=== PATIENT | female | born 1990 | race Two or more races ===

== ENCOUNTER 2021-04-13 13:30 | Emergency (ER) | payer SELFPAY ==
[2021-04-13 13:48] VITALS: BP 112/71; PULSE 75; RESP 18; TEMP 36.9; O2SAT 100; BMI 31.1
--- NOTE | 2021-04-13 14:32 | ED_ITS ---
HPI - Recheck/Abnormal Lab/Rx General Chief Complaint: Wound/Laceration Stated Complaint: VAGINAL ISSUE Time Seen by Provider: 04/13/21 14:29 Related Data Allergies Allergy/AdvReac Type Severity Reaction Status Date / Time No Known Allergies Allergy Verified 04/13/21 13:53 [facility] Past Medical History Medical History (Updated 04/13/21 @ 13:52 by Ibeth Thomas) No known health problems Social History Social History Patient : No Physical Exam Vital Signs: Vital Signs: Last Vital Signs Temp 98.5 F 04/13/21 13:48 Pulse 75 04/13/21 13:48 Resp 18 04/13/21 13:48 BP 112/71 04/13/21 13:48 Pulse Ox 100 04/13/21 13:48 Body Mass Index 31.1
--- NOTE | 2021-04-13 14:48 | PC.NURSE ---
multiple calls made to bring pt back, no answer
== END 2021-04-13 15:01 | disposition left against medical advice (07) ==
LOC: HO.ED 15:00
PROVIDERS: Emergency Provider Emergency Medicine
DX: R10.2 Pelvic and perineal pain (principal)
CPT/HCPCS: 99281; 99282

== ENCOUNTER 2021-08-21 10:11 | Outpatient (REF) | payer MEDICAID, SELFPAY ==
--- NOTE | 2021-08-21 10:20 | EMG_ITS ---
This is a 31-year-old woman who first developed pain and numbness in her hands during her 1st 9 years ago and now has pain and numbness in both hands. PHYSICAL EXAMINATION: On examination, she is alert and oriented with normal intellectual functions. Cranial nerves II through XII are normal. Muscle tone and strength normal in all 4 extremities. No Tinel or Phalen sign. IMPRESSION: Carpal tunnel syndrome. Nerve conduction EMG study: Mild to moderate carpal tunnel syndrome on the right, early carpal tunnel syndrome on the left. Normal EMG of the right C5-T1 innervated muscles. MD ARUN Montana/CHANELLE / [id number]
== END 2021-08-21 10:12 | disposition home or self-care (01) ==
LOC: HO.NEURO 10:11
PROVIDERS: Visit Provider Registered Nurse
DX: R20.2 Paresthesia of skin (principal)
CPT/HCPCS: 95885; 95913

== ENCOUNTER 2021-09-09 10:17 | Outpatient (REF) | payer MEDICAID, OTHER, SELFPAY ==
[2021-09-09 10:32] LABS: MANUAL DIFF FLAG NO
[2021-09-09 10:47] LABS: Basophils Percent Auto 0.4 % (0-2); Eosinophils Absolute Auto 0.2 X10*3/uL (0.0-0.4); Eosinophils Percent Auto 1.8 % (0-4); Hematocrit 42.4 % (37.0-47.0); Hemoglobin 13.8 g/dl (12.0-16.0); Imm Gran Abs Auto 0.01 X10*3/uL (0.00-0.03); Imm Gran Pct Auto 0.1 % (0.0-0.4); Lymphocytes Absolute Auto 3.1 X10*3/uL (1.2-4.9); Lymphocytes Percent Auto 36.4 % (20-40); Mean Corpuscular HGB Conc 32.5 g/dl (31.0-35.0); Mean Corpuscular Hemoglobin 30.3 pg (27.0-33.0); Mean Corpuscular Volume 93.2 fL (80.0-98.0); Mean Platelet Volume 10.5 fL (9.4-12.3); Monocytes Absolute Auto 0.5 X10*3/uL (0.1-1.2); Monocytes Percent Auto 6.3 % (2-11); Neutrophils Absolute Auto 4.7 x10*3/uL (2.0-8.3); Platelet Count 328 X10*3/uL (160-400); Red Blood Count 4.55 X10*6/uL (4.20-5.50); Red Cell Distribution Width 14.4 % (11.0-16.0); White Blood Count 8.5 X10*3/uL (4.8-10.8)
[2021-09-09 14:12] LABS: CT PCR NOT DETECTED (Not Detect.); NG PCR NOT DETECTED (Not Detect.)
== END 2021-09-09 10:18 | disposition home or self-care (01) ==
LOC: HO.LAB 10:17
PROVIDERS: Absent Provider Registered Nurse; PCP Registered Nurse; Visit Provider Internal Medicine
DX: N92.1 Excessive and frequent menstruation with irregular cycle (principal)
CPT/HCPCS: 84443; 85025; 87491; 87591

== ENCOUNTER 2021-10-07 11:16 | Outpatient (REF) | payer MEDICAID, OTHER, SELFPAY ==
--- NOTE | ~2021-10-07 | US_ITS ---
EXAMINATION: US PELVIS CLINICAL INFORMATION: Irregular menses COMPARISON: None TECHNIQUE: Ultrasound of the pelvis is performed using both transabdominal and transvaginal transducers along with Doppler. Transvaginal imaging is performed due to inadequate visualization transabdominally. FINDINGS: Uterus: The uterus is anteverted and measures 8.8 cm in length, 4.3 mL in AP and 5.3 cm in transverse dimension. The double wall endometrial thickness is 0.2 cm. There is an echogenic focus in the central endometrial canal measuring 0.3 x 0.3 x 0.2 cm. The uterus is smooth in contour and has normal myometrial echogenicity. No visible fibroid. Adnexa: Both ovaries are visualized. There is normal color flow to the adnexa. There is no ovarian torsion. There is no pelvic ascites or fluid collection. Right ovary measures 3.5 x 1.6 x 1.8 and volume 5.4 mL. There are multiple follicles visualized. Left ovary measures 3.7 x 2.3 x 2.1 cm and volume 9.3 mL. There are multiple follicles visualized. US/US pelvic and transvaginal IMPRESSION: Multiple small follicles seen in both ovaries. Echogenic focus in the endometrial canal question calcification. The uterus otherwise unremarkable. Minimal fluid within the cervical canal.
== END 2021-10-07 11:17 | disposition home or self-care (01) ==
LOC: HO.US 11:16
PROVIDERS: PCP Registered Nurse; Visit Provider Registered Nurse
DX: N92.1 Excessive and frequent menstruation with irregular cycle (principal)
CPT/HCPCS: 76830; 76856

== ENCOUNTER 2022-04-28 18:05 | Outpatient (REF) | payer MEDICAID, OTHER, SELFPAY ==
--- NOTE | ~2022-04-28 | MR_ITS ---
EXAMINATION: MRI OF THE BRAIN WITHOUT CONTRAST. CLINICAL INFORMATION: 32-year-old with persistent intense headaches, left-sided temporal region. COMPARISON: None. TECHNIQUE: Multiplanar multisequence MR imaging of the brain was done without IV contrast. FINDINGS: BRAIN VOLUME: Moderately prominent sulcal spaces overlying the parietal convexity and occipital lobes is noted bilaterally, the significance of which is uncertain. If clinically warranted, quantitative brain volumetrics may be of additional value for further assessment of this finding. STRUCTURAL: No malformations. BRAIN AND MENINGES: DWI sequence demonstrates no restricted diffusion to suggest acute or subacute cerebral ischemia. The brain is normal in morphology and signal intensity. Gradient refocused imaging demonstrates no abnormal magnetic susceptibility artifact to suggest hemorrhage, hemosiderin staining or abnormal mineral deposition. No extra-axial fluid collection, space-occupying process or mass effect. Segovia-white matter interface is preserved. VENTRICLES AND SUBARACHNOID SPACES: The ventricular system is within normal limits without hydrocephalus. Subarachnoid spaces overlying the parieto-occipital lobes seems disproportionately prominent, of uncertain significance. ORBITAL STRUCTURES: The visualized orbital structures are grossly unremarkable within the limitations of the study. VASCULAR: Signal voids are noted in the visualized major intracranial vessels. OSSEOUS STRUCTURES, SINUSES/MASTOIDS, EXTRACRANIAL SOFT TISSUES: Some mucosal thickening in the ethmoid complex is noted, with probable retention cysts in the maxillary sinuses bilaterally. Osseous marrow signal intensity appears grossly within normal limits. MR/MR head/brain wo con IMPRESSION: 1. No acute intracranial process. Specifically, no evidence for infarction, hemorrhage, extra-axial fluid collection, significant space-occupying process or mass effect. 2. Somewhat disproportionately prominent sulcal spaces overlying the parietal and occipital lobes bilaterally, significance uncertain. If clinically warranted, quantitative brain volumetrics can be done to further assess. There is no hydrocephalus. 3. Paranasal sinus findings as discussed above.
== END 2022-04-28 18:06 | disposition home or self-care (01) ==
LOC: HO.MRI 18:05
PROVIDERS: Visit Provider Registered Nurse
DX: R51.9 Headache, unspecified (principal)
CPT/HCPCS: 70551

== ENCOUNTER 2023-07-29 12:41 | Outpatient (REF) | payer MEDICAID, OTHER, SELFPAY | END 2023-07-29 12:42 | disposition home or self-care (01) | LOC: HO.HHCL 12:41 | PROVIDERS: Visit Provider Registered Nurse | DX: Z00.00 Encounter for general adult medical examination without abnormal findings (principal); Z11.1 Encounter for screening for respiratory tuberculosis | CPT/HCPCS: 36415; 86481 ==

== ENCOUNTER 2023-08-21 11:11 | Outpatient (REF) | payer MEDICAID, OTHER, SELFPAY ==
[2023-08-21 14:29] LABS: MANUAL DIFF FLAG NO
[2023-08-21 14:42] LABS: Estimated Average Glucose 97 mg/dL
[2023-08-21 14:51] LABS: Basophils Percent Auto 0.6 % (0-2); Eosinophils Absolute Auto 0.2 X10*3/uL (0.0-0.4); Eosinophils Percent Auto 3.2 % (0-4); Hematocrit 38.1 % (37.0-47.0); Hemoglobin 12.5 g/dl (12.0-16.0); Imm Gran Abs Auto 0.01 X10*3/uL (0.00-0.03); Imm Gran Pct Auto 0.2 % (0.0-0.4); Lymphocytes Absolute Auto 2.5 X10*3/uL (1.2-4.9); Lymphocytes Percent Auto 38.4 % (20-40); Mean Corpuscular HGB Conc 32.8 g/dl (31.0-35.0); Mean Corpuscular Hemoglobin 31.3 pg (27.0-33.0); Mean Corpuscular Volume 95.5 fL (80.0-98.0); Mean Platelet Volume 11.8 fL (9.4-12.3); Monocytes Absolute Auto 0.6 X10*3/uL (0.1-1.2); Monocytes Percent Auto 9.4 % (2-11); Neutrophils Absolute Auto 3.2 x10*3/uL (2.0-8.3); Neutrophils Percent Auto 48.2 % (45-73); Platelet Count 253 X10*3/uL (160-400); Red Blood Count 3.99 X10*6/uL (4.20-5.50); Red Cell Distribution Width 13.2 % (11.0-16.0); White Blood Count 6.6 X10*3/uL (4.8-10.8)
[2023-08-21 14:53] LABS: Alanine Aminotransferase 26 U/L (0-31); Albumin Level 3.9 g/dL (3.5-5.0); Alkaline Phosphatase 88 U/L (39-117); Anion Gap 13 (12-20); Aspartate Amino Transferase 27 U/L (5-31); Bilirubin Total 0.2 mg/dL (0.0-1.0); Blood Urea Nitrogen 6 mg/dL (9-16); Calcium 8.8 mg/dL (8.4-10.2); Carbon Dioxide 28 mmol/L (22-29); Chloride 105 mmol/L (96-108); Cholesterol 168 mg/dL (<200); Estimated Glomerular Filt Rate > 60; Glucose Random 79 mg/dL (60-115); HDL Cholesterol 49 mg/dL (>40); LDL Cholesterol Calculated 106 mg/dL (<100); Potassium 3.9 mmol/L (3.3-5.1); Sodium 142 mmol/L (135-145); Total Protein 6.6 g/dL (6.5-8.0); Triglycerides 68 mg/dL (<150)
[2023-08-21 15:10] LABS: TSH reflex Free T4 1.12 uIU/mL (0.32-4.0)
[2023-08-21 16:10] LABS: CT PCR NOT DETECTED (Not Detect.); NG PCR NOT DETECTED (Not Detect.)
[2023-08-24 04:19] LABS: HBS Num1 0.22 mIU/mL (0-7.99); HBsAGNum1 0.35 S/CO (0.00-0.99); Hepatitis B Core Antibody Nonreactive (Nonreactive); Hepatitis B Surface Antigen Negative (Negative); ~Hepatitis B Surface Antibody NONREACTIVE (Nonreactive)
[2023-08-24 04:36] LABS: HIV AB/AG Nonreactive (Nonreactive); HIV Num 1 0.05 S/CO (0.00-0.99)
[2023-08-24 10:13] LABS: RPR Rapid Plasma Reagin NON-REACTIVE (NON-REACTIVE)
[2023-08-24 14:29] LABS: HCV Log PCR <1.18 NOT DETECTED Log IU/mL (NOT DETECTED); HepC Viral Load <15 NOT DETECTED IU/mL (NOT DETECTED)
== END 2023-08-21 11:12 | disposition home or self-care (01) ==
LOC: HO.CHCLDS 11:11
PROVIDERS: Visit Provider Registered Nurse
DX: Z00.00 Encounter for general adult medical examination without abnormal findings (principal)
CPT/HCPCS: 0353U; 36415; 80053; 80061; 83036; 84443; 85025; 86592; 86704; 86706; 87340; 87389; 87522

== ENCOUNTER 2023-08-26 14:58 | Outpatient (REF) | payer MEDICAID, OTHER, SELFPAY ==
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
== END 2023-08-26 14:59 | disposition home or self-care (01) ==
LOC: HO.MAMMO 14:58
PROVIDERS: PCP Registered Nurse; Visit Provider Advanced Practice Midwife
DX: N64.4 Mastodynia (principal)
CPT/HCPCS: 76642; 77062; 77066

== ENCOUNTER → 2023-08-26 15:01 | Outpatient (BNV) | payer SELFPAY | PROVIDERS: PCP Registered Nurse; Visit Provider Radiology Diagnostic Radiology | DX: N64.4 Mastodynia (principal) | CPT/HCPCS: 76642; 77062; 77066 ==

== ENCOUNTER 2024-09-14 11:34 | Outpatient (REF) | payer OTHER, SELFPAY ==
--- OUTSIDE RECORDS SUMMARY | 2024-09-14 12:12 | XMS_ITS | Encounter Summary ---
Author Organization [employer] Address [address] [facility] [address]t [place] [address] Care Team Providers Care Motors Assembler Name Role Phone Layne Lozano JESSICA Primary Care Provider [phone] Encounter Details Date Type Department Care Team (Latest Contact Info) Description 08/31/2024 Travel Social History Tobacco Use Types Packs/Day Years Used Date Smoking Tobacco: Never Passive Smoke Exposure: Never Smokeless Tobacco: Never Alcohol Use Standard Drinks/Week Comments Never 0 (1 standard drink = 0.6 oz pur e alcohol) Depression Answer Date Recorded Patient Health Questionnaire-9 Score 0 08/21/2023 Patient Health Questionnaire-9 Score 0 08/21/2023 Last PHQ-9: Questionnaire Data Not on file 0 08/21/2023 Housing Stability Answer Date Recorded What is your housing situation today? I have hai nichole 08/29/[address] you li ve. Do you have problems with any of the following? None of the above 08/29/2024 Food Insecurity Answer Date Recorded Within the past 12 months, y ou worried that your food would run out before you got money to buy more: Sometimes True 2024 Within the past 12 months,th e food you bought just didn't last and you didn't have enough money to get more: Sometimes True 08/29/2024 Transportation Answer Date Recorded In the past 12 months, has l ack of transportation kept you from medical appts, meetings, work or from getting things needed for daily living? No 08/29/2024 Utilities Answer Date Recorded In the past 12 months, has t he electric, gas, oil or water company threatened to shut off services in your home? No 08/29/2024 Depression Answer Date Recorded Patient Health Questionnaire-2 Score 1 08/21/2023 Internet Access Answer Date Recorded Internet Access Q1 Yes 08/29/2024 Internet Access Q2 Not on file 08/29/2024 Comments No Sex and Gender Information Value Date Recorded Sex Assigned at Female 05/26/2022 10:39 AM EDT Legal Sex Female 10:39 AM EDT Gender Identity Female 05/26/2022 10:39 AM EDT Sexual Orientation Straight 05/26/2022 10 :39 AM EDT documented as of this encounter Plan of Treatment Upcoming Encounters Date Type Department Care Team (Late st Contact Info) Description 10/26/2024 11:30 AM EDT Office Visit [facility] [address] [place] [address] Kelsey Dhaliwal CNM [address] [place] [address] 12/14/2024 10:30 AM EDT Office Visit [address] [address] Layne Lozano FNP [address] [place] [address] documented as of this encounter Visit Diagnoses Not on filedocumented in this encounter Additional Health Concerns Assessment Noted Time PHQ-9 Depression Total Score: 0 08/21/19 24 9:43 AM EST documented as of this encounter Care Teams Motors Assembler Relationship Specialty Start Date End Date Layne Lozano FNP [address] [place] [address] PCP - General Family Medicine 05/27/21 documented as of this encounter
--- OUTSIDE RECORDS SUMMARY | 2024-09-14 12:12 | XMS_ITS | Encounter Summary ---
Author Organization [employer] Address [address] [place] [address] 7 [place] [address] Care Team Providers Care Horticulturalist Name Role Phone Layne Lozano JESSICA Primary Care Provider [phone] Reason for Visit * Reason Comments Filling Patient presents tod ay for filling on tooth #13 #14 and #15 Encounter Details Date Type Department Care Team (Late st Contact Info) Description 09/06/2024 3:00 PM EST Office Visit [facility] ADULT DENTAL [address] [place] [address] ReganCarbajalKristy saucedo, DDS [address] [place], [place] [phone] Dental caries (Primary Dx) Social History Tobacco Use Types Packs/Day Years [...] AM EDT documented as of this encounter Progress Notes * Kristy Brar DDS - 09/06/2024 3:00 PM EST Patient ID: Herson Christianson is a 34 y.o. female. Time Out: Timeout Date: 09/06/24, Timeout Time: 1507 (time out for fillin on tooth #13 #14 #15) Location: [facility] Tooth: #13, #14, and #15 Procedure: Scientology Verified the above with patient, child and youth program assistant, and provider. Confirmed via patient's chart, intraorally and by radiographs. Manager Contract: not applicable Chief Complaint Patient presents with Filling Patient presents today for filling on tooth #13 #14 and #15 Medical Hx: Vitals: Last menstrual period 08/12/2024. Medications, Med Hx reviewed with patient and updated in chart. Consent Obtained: The risks, benefits, indications, potential complications, and alternatives were explained to the patient and informed consent was obtained with good understanding. Treatment Provided: Dental procedures in this visit [id number] - RESTORATIVE - RESIN-BASED COMPOSITE RESTORATIONS - DIRECT - RESIN-BASED COMPOSITE - TWO SURFACES, POSTERIOR 13 DO (Completed) Service provider: Kristy Brar DDS Billing provider: Kristy Brar DDS [id number] - RESTORATIVE - RESIN-BASED COMPOSITE RESTORATIONS - DIRECT - RESIN-BASED COMPOSITE - TWO SURFACES, POSTERIOR 14 LO (Completed) Service provider: Kristy Brar DDS Billing provider: Kristy Brar DDS [id number] - RESTORATIVE - RESIN-BASED COMPOSITE RESTORATIONS - DIRECT - RESIN-BASED COMPOSITE - TWO SURFACES, POSTERIOR 15 LO (Completed) Service provider: Kristy Brar DDS Billing provider: Kristy Brar DDS [id number] - ADJUNCTIVE GENERAL SERVICES - PROFESSIONAL VISITS - CASE PRESENTATION, SUBSEQUENT TO DETAILED AND EXTENSIVE TREATMENT PLANNING (Completed) Service provider: Kristy Brar DDS Billing provider: Kristy Brar DDS Diagnosis: Dental Caries Topical: 20% Benzocaine Anesthesia: 2% Lidocaine (Xylocaine) w/ 1:100,000 epinephrine Number of Cartridges: 1.5 Injection Type: Buccal infiltration, Palatal infiltration, Middle superior alveolar nerve block, and Posterior superior alveolar nerve block Confirmed profound anesthesia. Isolation: high speed suction and cotton rolls Prep: All caries removed and Preparation finalized Matrix: Tofflemire and wedge Etch: 37% Phosphoric Acid Etch Desensitizer: Gluma Liner/Base: None Monroy: I-Monroy Scientology Material: Filtek [place] Flowable Composite and Paradigm Composite Shade: A3 Polished. Occlusion & contacts verified. Patient satisfied with comfort and esthetics. Patient tolerated procedure well. Post-operative instructions were given. Patient departed alert, oriented, and in stable condition. NV: arturo Button Pusher: Miranda Thompson/GERI Armando student Dentist: Kristy Brar DDS documented in this encounter Plan of Treatment Upcoming Encounters Date Type Department Care Team (Late st Contact Info) Description 10/26/2024 11:30 AM EDT Office Visit [facility] MED[facility] [address] [place] [address] Kelsey Dhaliwal CNM [address] [place] [address] [place] [address] 12/14/2024 10:30 AM EDT Office Visit [facility] [address] [place] [address] Layne Lozano FNP [address] [place] [address] Scheduled Orders Name Type Priority Associated Diagnoses Orde r Schedule PROPHYLAXIS - ADULT Dental Routine 1 Occ urrences starting 09/06/2024 documented as of this encounter Procedures Procedure Name Priority Date/Time Associated Diagnosis Comments 15 LO RESIN-BASED COMPOSITE - 2 SURF, POSTERIOR Routine 09/06/2024 3:00 PM EST 14 LO RESIN-BASED COMPOSITE - 2 SURF, POSTERIOR Routine 09/06/2024 3:00 PM EST 13 DO RESIN-BASED COMPOSITE - 2 SURF, POSTERIOR Routine 09/06/2024 3:00 PM EST CASE PRESENTATION, DETAILED AND EXTENSIVE TREATMENT PLANNING Routine 09/06/2024 3:00 PM EST documented in this encounter Visit Diagnoses Diagnosis Dental caries- Primary Unspecified dental caries documented in this encounter Additional Health Concerns Assessment Noted Time PHQ-9 Depression Total Score: 0 08/21/19 24 9:43 AM EST documented as of this encounter Care Teams Horticulturalist Relationship Specialty Start Date End Date Layne Lozano FNP [address] [place] [address] PCP - General Family Medicine 05/27/21 documented as of this encounter
--- OUTSIDE RECORDS SUMMARY | 2024-09-14 12:12 | XMS_ITS | Encounter Summary ---
Author Organization [employer] Address [address] [facility] 7t [place] [address] Care Team Providers Care Manager Sterile Processing Name Role Phone Layne Lozano JESSICA Primary Care Provider [phone] Encounter Details Date Type Department Care Team (Latest Contact Info) Description 09/14/2024 Travel Social History Tobacco Use Types Packs/Day Years Used Date Smoking Tobacco: Never Passive Smoke Exposure: Never Smokeless Tobacco: Never Alcohol Use Standard Drinks/Week Comments Never 0 (1 standard drink = 0.6 oz pur e alcohol) Depression Answer Date Recorded Patient Health Questionnaire-9 Score 0 09/14/2024 Patient Health Questionnaire-9 Score 0 09/14/2024 Last PHQ-9: Questionnaire Data Not on file 0 09/14/2024 Housing Stability Answer Date Recorded What is [...] Answer Date Recorded Patient Health Questionnaire-2 Score 0 09/14/2024 Internet Access Answer Date Recorded Internet Access [...] Description 10/26/2024 11:30 AM EDT Office Visit [facility] [address] [place] [address] Kelsey Dhaliwal CNM [address] [place] [address] 12/14/2024 10:30 AM EDT Office Visit [address] [address] Layne Lozano FNP [address] [place] [address] documented as of this encounter Visit Diagnoses Not on filedocumented in this encounter Additional Health Concerns Assessment Noted Time PHQ-9 Depression Total Score: 0 09/14/19 25 10:20 AM EST documented as of this encounter Care Teams Manager Sterile Processing Relationship Specialty Start Date End Date Layne Lozano FNP [address] [place] [address] PCP - General Family Medicine 05/27/21 documented as of this encounter
--- OUTSIDE RECORDS SUMMARY | 2024-09-14 12:13 | XMS_ITS | Encounter Summary ---
Author Organization [employer] Address [address] [place] [address] 7 [place] [address] Care Team Providers Care Compensation Director Name Role Phone Layne Lozano Primary Care Provider [phone] Reason for Referral * Consultation (Routine) - Authorized Specialty Diagnoses / Procedures Referred By Luis maldonado Referred To Contact Family Medicine Diagnoses Keratosis pilaris Layne Lozano FNP [address] [place] [address] Phone: tel: fax: Referral ID Status Reason Start Date Expiration Date Visits Requested Visits Authorized [id number] Authorized Specialty Services Required 09/14/2024 09/14/2025 1 1 Reason for Visit * Reason Comments CHW - Office Visit Encounter Details Date Type Department Care Team ([facility] Contact Info) Description 09/14/2024 10:00 AM EST Office Visit [facility] [address] [place] [address] Layne Lozano FNP [address] [place] [address] Palpitations (Primary Dx); Healthcare maintenance; Dietary counseling; Exercise counseling; Encounter for immunization; Keratosis pilaris Social History Tobacco Use Types Packs/Day Years [...] AM EDT documented as of this encounter Last Filed Vital Signs Vital Sign Reading Time Taken Comments Blood Pressure 98/63 09/14/2024 10:17 AM EST Pulse 79 09/14/2024 10:17 AM EST Temperature 35.8 ??C (96.5 ??F) 09/14/2024 10:[address] Respiratory Rate 18 09/14/2024 10:17 AM EST Oxygen Saturation 98% 09/14/2024 10:17 AM EST Inhaled Oxygen Concentration - - Weight 78 kg (172 lb) 09/14/2024 10:17 AM EST Height 160 cm (5' 3 ) 09/14/2024 10:17 AM EST Body Mass Index 30.47 09/14/2024 10:17 AM EST documented in this encounter Plan of Treatment Upcoming Encounters Date Type Department Care Team (Late st Contact Info) Description 10/26/2024 11:30 AM EDT Office Visit [facility] [address] [place] [address] Madhuri Kelsey, CNM [address] [place] [address] 12/14/2024 10:30 AM EDT Office Visit [facility] [address] [place], [place] [phone] Layne Lozano, MALT HOUSE SUPERVISOR [address] [place], [place] [phone] Scheduled Orders Name Type Priority Associated Diagnoses Orde r Schedule Lipid Panel, Standard Lab Routine Healthcare maintenance Expected: 09/14/2024 (Approximate), Expires: 09/14/2025 Hemoglobin A1c Lab Routine Healthcare maintenance Expected: 09/14/2024 (Approximate), Expires: 09/14/2025 TSH with Reflex to Free T4 Lab Routine Healthcare maintenance Expected: 09/14/2024 (Approximate), Expires: 09/14/2025 Comprehensive Metabolic Panel Lab Routine Healthcare maintenance Expected: 09/14/2024 (Approximate), Expires: 09/14/2025 CBC auto differential Lab Routine Healthcare maintenance Expected: 09/14/2024, Expires: 09/14/2025 Chlamydia/N. Gonorrhoeae RNA, TMA, Urogenitial Microbiology Routine Healthcare maintenance Expected: 09/14/2024, Expires: 09/14/2025 Hepatitis C Viral RNA, Quantitative, Real-Time PCR Lab Routine Healthcare maintenance Expected: 09/14/2024 (Approximate), Expires: 09/14/2025 RPR (Monitor) with Reflex to??Titer Lab Routine Healthcare maintenance Expected: 09/14/2024 (Approximate), Expires: 09/14/2025 HIV-1/2 Antigen and Antibodies, Fourth Generation, with Reflexes Lab Routine Healthcare maintenance Expected: 09/14/2024 (Approximate), Expires: 09/14/2025 Urinalysis, Complete, with Reflex to Culture Lab Routine Healthcare maintenance Expected: 09/14/2024 (Approximate), Expires: 09/14/2025 Scheduled Referrals Name Type Priority Associated Diagnoses Orde r Schedule Referral to [facility] Derm Skin Adult Outpatient Referral Routine Keratosis pilaris Expected: 09/14/2024 (Approximate), Expires: 09/14/2025 documented as of this encounter Visit Diagnoses Diagnosis Palpitations- Primary Healthcare maintenance Dietary counseling Dietary surveillance and counseling Exercise counseling Encounter for immunization Keratosis pilaris Other specified congenital anomaly of skin documented in this encounter Additional Health Concerns Assessment Noted Time PHQ-9 Depression Total Score: 0 09/14/19 25 10:20 AM EST documented as of this encounter Care Teams Compensation Director Relationship Specialty Start Date End Date Layne Lozano FNP [address] [place] [address] PCP - General Family Medicine 05/27/21 documented as of this encounter
--- OUTSIDE RECORDS SUMMARY | 2024-09-14 12:13 | XMS_ITS | Clinical Summary ---
Author Organization [facility] Address [address] [place] [address] Care Team Providers Care Career Education Teacher Name Role Phone Abbie Ny Primary Care Provider Soren gomez Allergies No known active allergies Medications No known medications Social History Tobacco Use Types Packs/Day Years Used Date Smoking Tobacco: Never Assessed Comments Unknown Sex and Gender Information Value Date Recorded Sex Assigned at Not on file Legal Sex Female 9:10 AM EDT Gender Identity Not on file Sexual Orientation Not on file Plan of Treatment Health Maintenance Due Date Last Done Comments Cervical Cancer Screening 1990 HIV Screening 1990 HPV and Pap Smear 1990 Hepatitis C Screening 1990 Pap Smear 1990 Varicella Vaccines (1 of 2 - 13+ 2-dose series) 2003 Hepatitis B Vaccines (1 of 3 - 19+ 3-dose series) 2009 DTaP,Tdap,and Td Vaccines (1 - Tdap) 2012 COVID-19 Vaccine ( - 2023-2 5 season) 2024 Influenza Vaccine (#1) 2024 07/03/2021 Alcohol/Substance Use Screening 07/27/2024 Depression Screening and Follow-Up 07/27/2024 Social Drivers of Health Nan ual Screening 07/27/2024 RSV Vaccine (60+ years old a nd patients) (1 - 1-dose 75+ series) 2065 Pneumococcal Vaccine: Pediat mian (0-5 Years) and At-Risk Patients (6-50 Years) Aged Out No longer eligible b ased on patient's age to complete this topic Insurance [facility] Care Teams Career Education Teacher Relationship Specialty Start Date End Date Abbie Ny [address] [place] [address] PCP - General Family Medicine 01/03/22
--- OUTSIDE RECORDS SUMMARY | 2024-09-14 12:13 | XMS_ITS | Referral Summary ---
Author Organization [facility] Address [address] [place] [address] Care Team Providers Care Director Regulatory Compliance Name Role Phone Abbie Ny Primary Care [...] Orientation Not on file Plan of Treatment Not on file Insurance [facility] HS/FREE CARE Care Teams Director Regulatory Compliance Relationship Specialty Start Date End Date Abbie Ny [address] [place] [address] PCP - General Family Medicine 01/03/22
--- OUTSIDE RECORDS SUMMARY | 2024-09-14 12:13 | XMS_ITS | Encounter Summary ---
Author Organization [employer] Address [address] [facility] 7 [place] [address] Care Team Providers Care Baffle Installer Name Role Phone Layne Lozano Primary Care Provider [phone] Reason for Visit * Reason Onset Date Comments Nurse Triage 08/26/2024 Encounter Details Date Type Department Care Team ([facility] st Contact Info) Description 08/26/2024 Telephone [facility] [address] [place] [address] Layne Lozano FNP [address] [place] [address] Nurse Triage Social History Tobacco Use Types Packs/Day Years [...] housing situation today? I have hai nichole 07/08/[address] you li ve. Do you have problems with any of the following? None of the above 07/08/2023 Food Insecurity Answer Date Recorded Within the past 12 months, y ou worried that your food would run out before you got money to buy more: Sometimes True 2023 Within the past 12 months,th e food you bought just didn't last and you didn't have enough money to get more: Sometimes True 08/13/2023 Transportation Answer Date Recorded In the past 12 months, has l ack of transportation kept you from medical appts, meetings, work or from getting things needed for daily living? Yes, it has kept me from medical appointments or getting medications. 08/13/2023 Utilities Answer Date Recorded In the past 12 months, has t he electric, gas, oil or water company threatened to shut off services in your home? No 07/08/2023 Depression Answer Date Recorded Patient Health Questionnaire-2 Score 1 08/21/2023 Comments No Sex and Gender Information Value Date Recorded Sex Assigned at Female 05/26/2022 10:39 AM EDT Legal Sex Female 10:39 AM EDT Gender Identity Female 05/26/2022 10:39 AM EDT Sexual Orientation Straight 05/26/2022 10 :39 AM EDT documented as of this encounter Miscellaneous Notes * Telephone Encounter - Sandra Womack LPN - 08/26/2024 11:45 AM EST Triage call returned to patient with BLS [id number] Bhumi. Patient reports low mid pelvis pain near pubic area. Pain present for some time. No daily use of analgesic reported. No nausea or vomiting . No fever. No urinary complaints. Reports heavy menses thatare 6 days in duration. Has LMP 08/12/24. No recent DOCTOR OF NAPRAPATHY exam on chart. Noted + female history from note on 08/21/23. Disposition reviewed and patient in agreement with plan. ASK/Sophie 08/31/24 aspatient can only come on Thursday. Protocol Used: Pelvic Pain - Female (Adult) Protocol-Based Disposition: See in Office or Video Visit within 2 Weeks Positive Triage Question: * Pelvic pain is a chronic symptom (recurrent or ongoing AND present > 4 weeks) * All higher-acuity triage questions were negative Care Advice Discussed: * Reasons To Call Back - Severe pain lasts over 1 hour - Constant pain lasts over 2 hours - Intermittent pain (comes and goes, cramps) lasts over 48 hours - You become worse * Telephone Encounter - Ted Lin - 08/26/2024 11:23 AM EST Symptom: Abdominal Pain - Female - Not Outcome: Schedule an urgent appointment (within 4 hours) or talk to a nurse or provider soon Reason: Getting worse The caller accepted this outcome. Indian speaking documented in this encounter Plan of Treatment Upcoming Encounters Date Type Department Care Team (Late st Contact Info) Description 10/26/2024 11:30 AM EDT Office Visit [facility] [address] [place] [address] Kelsey Dhaliwal CNM [address] [place] [address] 12/14/2024 10:30 AM EDT Office Visit [facility] [address] [place] [address] Layne Lozano FNP [address] [place] [phone] documented as of this encounter Visit Diagnoses Not on filedocumented in this encounter Additional Health Concerns Assessment Noted Time PHQ-9 Depression Total Score: 0 08/21/19 24 9:43 AM EST documented as of this encounter Care Teams Baffle Installer Relationship Specialty Start Date End Date Layne Lozano FNP [address] [place] [phone] PCP - General Family Medicine 05/27/21 documented as of this encounter
--- OUTSIDE RECORDS SUMMARY | 2024-09-14 12:13 | XMS_ITS | Clinical Summary ---
Author Organization [employer] Address [address] [facility] 7t [place] [address] Care Team Providers Care Television Repairer Name Role Phone Layne Lozano JESSICA Primary Care Provider [phone] Allergies No known active allergies Medications * This document contains information received from the source organization and may not represent a complete record from that organization. Blood Pressure Monitor kitIndications: Dizziness Check blood pressure when symptomatic 1 kit 07/08/20 23 Active Additional Information Patient not taking.Reported on 09/06/2024 ibuprofen 400 MG tablet Take 1 tablet (400 mg) by mouth every 6 (six) hours if needed for moderate pain or fever for up to 30 doses. 30 tablet 08/05/19 24 Active ceramides (CeraVe) moisturizing cream Apply 1 Application. topically if needed for dry skin. 340 g 1 08/05/19 24 Active Sod Fluoride-Potass ium Nitrate 1.1-5 % pasteIndication s:Dental caries [place] teeth for 2 minutes, morning and night. Spit, do not rinse. Do not eat or drink anything for 30 minutes following brushing. 112 g 3 08/14/19 24 Active Additional Information Patient not taking.Reported on 09/06/2024 tretinoin (Retin-A) 0.025 % cream Apply topically at bedtime. 45 g 3 09/30/19 24 2024 Active benzoyl peroxide (PanOxyl Foaming Wash) 10 % external wash Apply topically 2 times daily. 142 g 3 09/30/19 24 2024 Active Additional Information Patient not taking.Reported on 09/06/2024 Drospirenone (Slynd) 4 MG tablet Take 1 tablet by mouth Once per day. 28 tablet 11 08/31/19 25 Active Additional Information Patient not taking.Reported on 09/06/2024 acetaminophen (Tylenol) 500 MG tablet Take 2 tablets (1,000 mg) by mouth every 6 (six) hours if needed for moderate pain or fever. 100 tablet 2 09/14/19 25 2025 Active Diclofenac Sodium 1 % gel Apply thin layer by topical route (quantity as directed on package insert) to affected area of pain 3 times daily as needed. 50 g 3 09/14/19 25 Active acetaminophen (Tylenol) 500 MG tablet Take 2 tablets (1,000 mg) by mouth every 6 (six) hours if needed for moderate pain or fever for up to 25 doses. 30 tablet 08/05/19 24 2024 Discontinued(R eorder (will not trigger notification to Pharmacy)) Active Problems Problem Noted Date Diagnosed Date Prolonged periods 11/27/2023 Dental plaque 09/11/2023 Healthcare maintenance 08/23/2023 Overview (08/23/2023): ?? Last PE: 08/21/23 ?? Pap: NILM, HPV neg 07/11/21. Due 2025. Reports also following with outside BRIEF WRITER provider ?? Optometry: [facility] scheduled for September 2023 Assessment & Plan (08/23/2023 2:22 PM EST): Vaccines: declines vaccines today including tetanus, flu, and COVID Palpitations 08/23/2023 Overview (08/23/2023): -EKG WNL Jul 2023 -Holter monitor ordered 08/23/23 for further eval -ED precautions reviewed Menorrhagia 10/16/2021 Carpal tunnel syndrome 10/02/2021 Resolved Problems Problem Noted Date Diagnosed Date Resolved Date Adjustment disorder with mix ed anxiety and depressed mood 11/20/2022 08/23/2023 Assessment & Plan (12/11/2022 1:17 PM EDT): Assessment: Patient with nervousness, overwhelmed, constant worry, guilt, depressed mood, crying spells, irritability and difficulty sleeping in the context of parenting and family stressors. Patient will benefit from at least 3 more short interventions in [facility] to manage current stressors and acquire additional skills and support for both parenting and management of anxiety and depressive sxs. At this time Herson Christianson meets criteria for Visit Diagnoses: Problem List Items Addressed This Visit Other Adjustment disorder with mixed anxiety and depressed mood Patient ready to address current needs Yes Strengths include Desire to receive support, good insight into situational stressor, previous self managing of stressors. PLAN: 1. Follow up with [facility]: Recommended for follow-up: 12/04/22 2. Patient goal is Reduce anxious and depressed mood 3. Behavioral Recommendations a. at least 3 more short interventions in [facility] to manage current stressors b. Reach out to community resources provided in session c. Practicing boundary setting and parenting skills discussed in session Encounters Date Type Department Care Team Description 09/14/2024 10:00 AM EST Office Visit [facility] [address] [place] [phone] Layne Lozano FNP Palpitations (Primary Dx); Healthcare maintenance; Dietary counseling; Exercise counseling; Encounter for immunization; Keratosis pilaris 09/14/2024 Travel 09/13/2024 Telephone [facility] [address] [place] [address] Leela Stokes MA Chart Prep 09/06/2024 3:00 PM EST Office Visit [facility] [address] [place] [phone] Kristy Brar, DDS Dental caries (Primary Dx) 08/31/2024 10:15 AM EST Office Visit [facility] [address] [place] [phone] Kelsey Dhaliwal CNM Pelvic pain (Primary Dx); Dysmenorrhea; Abnormal endometrial ultrasound 08/31/2024 Travel 08/29/2024 Patient Outreach [facility] [address] [place] [address] Layne Lozano FNP Care Coordination ([facility] outreach for SDOH PT-1 and food needs-referral completed /) 08/29/2024 Patient Outreach [facility] [address] [place] [address] Layne Lozano FNP Pre-visit Planning (SDOH Screening positive and Tobacco screening negative) 08/26/[address] [facility] [address] [place] [address] Layne Lozano FNP Nurse Triage from Last 3 Months Immunizations Name Administration Dates Next Due Hep B, adult 09/14/2024 Influenza injectable quadrivalent preservative f ree 07/03/2021 Tdap 09/14/2024 Family History Medical History Relation Name Comments Rheum arthritis Father's Sister Breast cancer Maternal Grandmother Ovarian cancer Mother Ovarian cancer Mother's Sister Hypertension Paternal Grandmother Relation Name Status Comments Father Father's Sister Maternal Grandmother Mother Mother's Sister Paternal Grandmother Social History Tobacco Use Types Packs/Day Years Used Date Smoking Tobacco: Never Passive Smoke Exposure: Never Smokeless Tobacco: Never Tobacco Cessation:Counseling Given: Not Answered Alcohol Use Standard Drinks/Week Comments Never 0 [...] Orientation Straight 05/26/2022 10 :39 AM EDT Last Filed Vital Signs Vital Sign Reading [...] Mass Index 30.47 09/14/2024 10:17 AM EST Plan of Treatment Upcoming Encounters Date Type Department Care Team (Late st Contact Info) Description 10/26/2024 11:30 AM EDT Office Visit [facility] [address] [place] [phone] Kelsey Dhaliwal, CNM [address] [place] [address] 12/14/2024 10:30 AM EDT Office Visit [facility] [address] [place] [address] Layne Lozano, SURGERY SCHEDULER [address] [place] [address] Health Maintenance Due Date Last Done Comments Dental Oral Exam 02/13/2024 08/14/2023 Dental Prophylaxis 03/12/2024 09/11/2023 COVID-19 Vaccine (1 - 2023-2 5 season) 2024 Influenza Vaccine (#1) 2024 07/03/2021 Dental X-Ray: Bitewings 08/15/2024 08/14/19 24, 12/05/2022 Hepatitis B Vaccines (2 of 3 - 19+ 3-dose series) 10/12/2024 09/14/2024 SDOH Screening 08/29/2025 08/29/2024 Family Planning (PISQ) 08/31/2025 08/31/2024 Alcohol/Substance Use Screening 09/14/2025 09/14/2024 Depression Screening 09/14/2025 09/14/2024, 09/14/2024 Tobacco Screening 09/14/2025 09/14/2024 Cervical Cancer Screening 07/11/2026 HPV/Cotest 07/11/2026 07/11/2021 Pap Smear 07/11/2026 07/11/2021 Dental X-Ray: Full Mouth 08/15/2026 024, 08/14/2023 DTaP/Tdap/Td Vaccines (2 - T d or Tdap) 09/14/2034 09/14/2024 Zoster Vaccines (1 of 2) 2040 RSV Patients and Patients Aged 60 years or older (1 - 1-dose 75+ series) 2065 HIV Screening Completed 08/21/2023 Hepatitis C Screening Completed 08/21/2023 HIB Vaccines Aged Out No longer eligi ble based on patient's age to complete this topic HPV Vaccines Aged Out No longer eligi ble based on patient's age to complete this topic Hepatitis A Vaccines Aged Out No long er eligible based on patient's age to complete this topic IPV Vaccines Aged Out No longer eligi ble based on patient's age to complete this topic Meningococcal Vaccine Aged Out No giovani jordan eligible based on patient's age to complete this topic Pneumococcal Vaccine: Pediatrics (0 to 5 Years) and At-Risk Patients (6 to 49) Years) Aged Out No longer eligible b ased on patient's age to complete this topic RSV under 20 months Aged Out No longe r eligible based on patient's age to complete this topic Rotavirus Vaccines Aged Out No longer eligible based on patient's age to complete this topic Procedures Procedure Name Priority Date/Time Associated Diagnosis Comments CASE PRESENTATION, DETAILED AND EXTENSIVE TREATMENT PLANNING Routine 09/06/2024 3:00 PM EST 15 LO RESIN-BASED COMPOSITE - 2 SURF, POSTERIOR Routine 09/06/2024 3:00 PM EST 14 LO RESIN-BASED COMPOSITE - 2 SURF, POSTERIOR Routine 09/06/2024 3:00 PM EST 13 DO RESIN-BASED COMPOSITE - 2 SURF, POSTERIOR Routine 09/06/2024 3:00 PM EST PROPHYLAXIS - ADULT Routine 09/11/2023 1 0:00 AM EST Dental plaque HEPATITIS C VIRAL RNA, QUANTITATIVE, REAL-TIME PCR Routine 08/21/2023 11:14 AM EST Encounter for routine history and physical examination of adult HIV 1/2 ANTIGEN/ANTIBODY, FOURTH GENERATION W/RFL Routine 08/21/2023 11:14 AM EST Encounter for routine history and physical examination of adult INTRAORAL - COMPLETE SERIES OF RADIOGRAPHIC IMAGES Routine 08/14/2023 9:30 AM EST Dental caries Gingivitis COMPREHENSIVE ORAL EVALUATION - NEW OR ESTABLISHED PATIENT Routine 08/14/2023 9:30 AM EST Dental caries Gingivitis THINPREP IMAGING PAP AND HPV MRNA E6/E7, WITH CT/NG, TRICHOMONAS Routine 07/11/2021 11:35 AM EST from Last 3 Months or Most Recently Relevant to Health Maintenance Results * Hepatitis C Viral RNA, Quantitative, Real-Time PCR (08/21/2023 11:14 AM EST) Hepatitis C Viral Load <15 NOT DETECTED NOT DETECTED IU/mL [facility] HCV Log PCR <1.18 NOT DETECTED NOT DETECTED Log IU/mL [facility] Comment:This test was perfor med using Real-Time Polymerase ChainReaction.Reportable Range: 15 IU/mL to 100,000,000 IU/mL(1.18 Log IU/mL to 8.00 Log IU/mL).The analytical performance characteristics of thisassay have been determined by [facility].The modifications have not been cleared or approved bythe FDA. This assay has been validated pursuant to theCLIA regulations and is used for clinical purposes.For more information on this test, go to:http://education.CloudMade/faq/MAT40n4(This link is being provided for informational/educational purposes only.)THIS TEST WAS PERFORMED AT:[facility] [address] [id number] DELGADO MD Blood 08/21/2023 11:1 4 AM EST 08/21/2023 2:29 PM EST Layne Lozano [facility] BLOOD ORDERABLES Final Res ult Performing Organization Address City/[facility]/ZIP Co de Phone Number [facility] [address] [place] [phone] * HIV-1/2 Antigen and Antibodies, Fourth Generation, with Reflexes (08/21/2023 11:14 AM EST) HIV AB/AG Nonreactive Nonreactive [facility] Comment:HIV-1 p24 Ag and/or HIV-1/HIV-2 Ab not detected.A test result that is nonreactive does not exclude thepossibility of exposure to or infection with HIV-1 and/orHIV-2. Nonreactive results in this assay for individualswith prior exposure to HIV-1 and/or HIV-2 may be due toantigen and antibody levels that are below the limit ofdetection of this assay.[facility] HIV Ag/Ab Combo assay result andsupplemental assay results should be interpreted inconjunction with the patient's clinical presentation,history and other laboratory results. If the results areinconsistent with clinical evidence, additional testing issuggested to confirm the result. Blood Venous blood specimen / Unknown 08/21/2023 11:14 AM EST 08/21/2023 2:29 PM EST Layne Lozano [facility] BLOOD ORDERABLES Final Res ult Performing Organization Address City/[facility]/ZIP Co de Phone Number [facility] [address] [place] [phone] * THINPREP TIS PAP AND HPV mRNA E6/E7, CT/NG, TRICH (07/11/2021 11:35 AM EST) Chlamydia trachomatis RNA, TMA, Urogenital NOT DETECTED NOT DETECTED [facility] Clinical Information: None given [facility] COMMENT SEE COMMENT [facility] Comment: The analytical performance characteristics of this assay, when used to test SurePath(TM) specimens have been determined by [facility]. The modifications have not been cleared or approved by the FDA. This assay has been validated pursuant to the CLIA regulations and is used for clinical purposes. ?? For additional information, please refer to https://[employer].CloudMade/faq/EBP023 (This link is being provided for information/ educational purposes only.) ?? COMMENT SEE COMMENT [facility] Comment: EXPLANATORY NOTE: ? The Pap is a screening test for cervical cancer. It is ?? not a diagnostic test and is subject to false negative ?? and false positive results. It is most reliable when a ?? satisfactory sample, regularly obtained, is submitted ?? with relevant clinical findings and history, and when ?? the Pap result is evaluated along with historic and ?? current clinical information. ?? COMMENT: This Pap test has been evaluated with computer assisted technology. [employer] Hired Help: SEE COMMENT [facility] Comment: SXA, CT(ASCP) CT screening location: [address] ??[id number] HPV nRNA E6/E7 Not Detected Not Detected [facility] Comment: Methodology: Tissue Specialist-Mediated Amplification This assay detects E6/E7 viral messenger RNA (mRNA) from 14 high-risk HPV types (16,18,31,33,35,39,45,51,52,56,58,59,66,68). ? The analytical performance characteristics of this assay have been determined by [facility]. The modifications have not been cleared or approved by the FDA. This assay has been validated pursuant to the CLIA regulations and is used for clinical purposes. ?? For additional information, please refer to http://[employer]Made/faq/JHG735l4 (This link if provided for information/ educational purposes only.) Interpretation/Re sult: Negative for intraepithelial lesion or malignancy. [facility] LMP: 07/04/2021 [facility] Neisseria gonorrhoeae RNA, TMA, Urogenital NOT DETECTED NOT DETECTED [facility] Prev. BX: NONE GIVEN [facility] Prev. PAP: NONE GIVEN [facility] SOURCE: Cervix [facility] Statement Of Adequacy: SEE COMMENT [facility] Comment: Satisfactory for evaluation. Endocervical/transformation zone component present. Trichomonas vaginalis, QL, TMA, PAP Vial NOT DETECTED NOT DETECTED [facility] Comment: The analytical performance characteristics of this assay have been determined by [facility]. The modifications have not been cleared or approved by the FDA. This assay has been validated pursuant to the CLIA regulations and is used for clinical purposes. ?? For additional information, please refer to http://education.CloudMade/ faq/Trichomonastma (This link is being provided for information/ educational purposes only.) ?? 07/11/2021 11:3 5 AM EST us Kelsey Dhaliwal CNM LAB PATHOLOGY ORDERABLES Final Result [facility] [address] from Last 3 Months or Most Recently Relevant to Health Maintenance Insurance [facility] - HSN FULL (MEDICAID) DENTAL-[facility] MEDICAID LIMITED ADULT Care Teams Television Repairer Relationship Specialty Start Date End Date Layne Lozano FNP [address] [place] [phone] PCP - General Family Medicine 05/27/21
--- OUTSIDE RECORDS SUMMARY | 2024-09-14 12:13 | XMS_ITS | Encounter Summary ---
Author Organization [employer] Address [address] [facility] 7 [place] [address] Care Team Providers Care Food Sampler Name Role Phone Layne Lozano Primary Care Provider [phone] Reason for Visit * Reason Comments Care Coordination CHW outreach for SDO H PT-1 and food needs-referral completed Encounter Details Date Type Department Care Team (Latest Contact Info) Description 08/29/2024 Patient Outreach [facility] [address] [place] [address] Layne Lozano FNP [address] [place], [place] [phone] Care Coordination ([facility] outreach for SDOH PT-1 and food needs-referral completed /) Social History Tobacco Use Types Packs/Day Years [...] got money to buy more: Sometimes True 02/03/ 2025 Within the past 12 months,th e food [...] as of this encounter Progress Notes * Hiram Leary - 08/29/2024 2:45 PM EST CHW Hiram Leary, placed outbound call to patient for assistance with SDOH as a referral was received by the provider. Patient's name and were confirmed. Patient screened positive for the following SDOH food insecurities. CHW referral patient to the local list of pantries in the area for help. PT-1 requested was send out in behalf of patient for futures appt. Patient verbalizes understandin g, and able to agree with plan to follow up. Patient educated on extended clinic hours on Mondays through Wednesdays, and Walk-In Urgent Care Located in [facility]. Patient provided with after-hours line for [facility], , which offer night time triage service and option to transfer to technical applications scientist provider if needed. documented in this encounter Plan of Treatment Upcoming Encounters Date Type Department Care Team ([facility] st Contact Info) Description 10/26/2024 11:30 AM EDT Office Visit [facility] [address] [place] [address] Kelsey Dhaliwal CNM [address] [place], [place] [phone] 12/14/2024 10:30 AM EDT Office Visit [facility] [address] [place] [address] Layne Lozano FNP [address] [place] [phone] documented as of this encounter Visit Diagnoses Not on filedocumented in this encounter Additional Health Concerns Assessment Noted Time PHQ-9 Depression Total Score: 0 08/21/19 24 9:43 AM EST documented as of this encounter Care Teams Food Sampler Relationship Specialty Start Date End Date Layne Lozano FNP [address] [place] [phone] PCP - General Family Medicine 05/27/21 documented as of this encounter
--- OUTSIDE RECORDS SUMMARY | 2024-09-14 12:13 | XMS_ITS | Encounter Summary ---
Author Organization [employer] Address [address] [place] [address] [address] [place] [address] Care Team Providers Care Insurance Special Agent Name Role Phone YeniLayne jarquin JESSICA Primary Care Provider [phone] Reason for Referral * Imaging (Urgent) - Authorized Specialty Diagnoses / Procedures Referred By Contac t Referred To Contact Radiology Diagnoses Pelvic pain Dysmenorrhea Abnormal endometrial ultrasound Procedures Us Pelvis complete Kelsey Dhaliwal CNM [address] [place] [address] Phone: tel: fax: [address] Phone: tel: fax: Referral ID Status Reason Start Date Expiration Date V isits Requested Visits Authorized [id number] Authorized 08/31/2024 08/31/2025 1 1 * Imaging (Urgent) - Authorized Specialty Diagnoses / Procedures Referred By Contac t Referred To Contact Radiology Diagnoses Pelvic pain Dysmenorrhea Abnormal endometrial ultrasound Procedures US Pelvis Transvaginal Kelsey Dhaliwal CNM [address] [place] [address] Phone: tel: fax: [address] Phone: tel: fax: Referral ID Status Reason Start Date Expiration Date V isits Requested Visits Authorized [id number] Authorized 08/31/2024 08/31/2025 1 1 Reason for Visit * Reason Comments Gynecologic Exam Encounter Details Date Type Department Care Team ([facility] st Contact Info) Description 08/31/2024 10:15 AM EST Office Visit [facility] [address] [place] [address] Kelsey Dhaliwal CNM [address] [place] [address] Pelvic pain (Primary Dx); Dysmenorrhea; Abnormal endometrial ultrasound Social History Tobacco Use Types Packs/Day Years [...] Sign Reading Time Taken Comments Blood Pressure 102/65 08/31/2024 10:32 AM EST Pulse 78 08/31/2024 10:32 AM EST Temperature 36.3 ??C (97.3 ??F) 08/31/2024 1 0:32 AM EST Respiratory Rate 20 08/31/2024 10:3 2 AM EST Oxygen Saturation 98% 08/31/2024 10: 32 AM EST Inhaled Oxygen Concentration - - Weight 74.8 kg (164 lb 12.8 oz) 025 10:32 AM EST Height 154.9 cm (5' 1 ) 08/31/2024 10:3 2 AM EST Body Mass Index 31.14 08/31/2024 10:32 AM EST documented in this encounter Progress Notes * Kelsey Dhaliwal, GIRISH - 08/31/2024 10:15 AM EST Subjective Patient ID: Herson Christianson is a 34 y.o. female who presents for painful periods Notes worsening dysmenorrhea for past few months, sometimes pain outside of menstrual cycles. Previously on oral contraceptive pill, stopped in 12/2023. Open to restarting. Gets migraines with possible aura. Monthly menses x 6 days. 4 -5 pads/day, occasionally changes in 2 hours. OTC pain medicationnot helpful for cramps. Normal breast imaging 08/2023. Pap NIL/HPV neg, gonorrhea/chlamydia/trichomonas negative 06/2021. Pelvic ultrasound ordered 06/2023 for followup on ultrasound from 2021 with multiple follicle bilaterally, possible endometrial calcification. She doesn't recall going to appointment. Gonorrhea/Chlamydia neg, normal TSH and hemoglobin/hematocrit 07/2023. Partner in [place], not sexually active in months, planning to go see him next month. Patient seen in conjunction with Johanna Carlin [facility] student. I was present for and confirmed all pertinent elements in the history, exam, assessment of the patient, and the plan of care, and agree with all findings. Review of Systems Genitourinary: Positive for menstrual problem and pelvic pain. Negative for dysuria, vaginal bleeding, vaginal discharge and vaginal pain. Objective BP 102/65 (BP Location: Left arm, Patient Position: Sitting, BP Cuff Size: Adult) Pulse 78 Temp97.3 ??F (36.3 ??C) (Temporal) Resp 20 Ht 5' 1 (1.549 m) Wt 164 lb 12.8 oz (74.8 kg) LMP 08/12/2024 (Exact Date) SpO2 98% BMI 31.14 kg/m?? Physical Exam Exam conducted with a pen tester present (Kelsey Dhaliwal CNM). Constitutional: Appearance: Normal appearance. Genitourinary: General: Normal vulva. Pubic Area: No rash. Labia: Right: No rash, tenderness, lesion or injury. Left: No rash, tenderness, lesion or injury. Vagina: Normal. No signs of injury and foreign body. No vaginal discharge, erythema, tenderness, bleeding, lesions or prolapsed vaginal montalvo. Cervix: Normal. No cervical motion tenderness, discharge, friability, lesion, erythema, cervical bleeding or eversion. Uterus: Normal. Not enlarged and not tender. Adnexa: Right adnexa normal. Right: No mass, tenderness or fullness. Left: Tenderness present. No mass or fullness. Neurological: Mental Status: She is alert. Psychiatric: Mood and Affect: Mood normal. Behavior: Behavior normal. Assessment/Plan Diagnoses and all orders for this visit: Pelvic pain - US Pelvis Transvaginal; Future - Us Pelvis complete; Future Mild LLQ tenderness on exam, not suggestive of PID. Will re-order ultrasound. Seek care if worsening symptoms. Dysmenorrhea - US Pelvis Transvaginal; Future - Us Pelvis complete; Future Trial Slynd. Ultrasound re-ordered. Followup 2-3 months if all well. Report worsening/persistent symptoms. Abnormal endometrial ultrasound - US Pelvis Transvaginal; Future - Us Pelvis complete; Future Repeat pelvic ultrasound ordered. Other orders - Drospirenone (Slynd) 4 MG tablet; Take 1 tablet by mouth Once per day. documented in this encounter Plan of Treatment Upcoming Encounters Date Type Department Care Team (Late st Contact Info) Description 10/26/2024 11:30 AM EDT Office Visit [facility] [address] [place] [address] Kelsey Dhaliwal CNM [address] [place] [address] 12/14/2024 10:30 AM EDT Office Visit [facility] [address] [place] [address] Layne Lozano FNP [address] [place] [address] Scheduled Orders Name Type Priority Associated Diagnoses Orde r Schedule US Pelvis Transvaginal Imaging Urgent Pelvic pain Dysmenorrhea Abnormal endometrial ultrasound Expected: 08/31/2024, Expires: 08/31/2025 Us Pelvis complete Imaging Urgent Pelvic pain Dysmenorrhea Abnormal endometrial ultrasound Expected: 08/31/2024, Expires: 08/31/2025 documented as of this encounter Visit Diagnoses Diagnosis Pelvic pain- Primary Dysmenorrhea Abnormal endometrial ultrasound documented in this encounter Additional Health Concerns Assessment Noted Time PHQ-9 Depression Total Score: 0 08/21/19 24 9:43 AM EST documented as of this encounter Care Teams Insurance Special Agent Relationship Specialty Start Date End Date Layne Lozano FNP [address] [place] [id number] PCP - General Family Medicine 05/27/21 documented as of this encounter
--- OUTSIDE RECORDS SUMMARY | 2024-09-14 12:13 | XMS_ITS | Encounter Summary ---
Author Organization [employer] Address [address] [facility] [address] [place] [address] Care Team Providers Care Swaging Machine Operator Name Role Phone Layne Lozano JESSICA Primary Care Provider [phone] Reason for Visit * Reason Onset Date Comments Chart Prep 09/13/2024 Encounter Details Date Type Department Care Team ([facility] st Contact Info) Description 09/13/2024 Telephone [facility] [address] [place] [address] Leela Stokes MA Chart Prep Social History Tobacco Use Types Packs/Day Years [...] encounter Miscellaneous Notes * Telephone Encounter - Leela Cotton MA - 09/13/2024 1:32 PM EST Chart Prep Labs: done Images: not done Vaccines due: yes Referrals: Scheduled 09/28/2024 AT 11:00 AM Screenings: n/a Overdue care gaps: Sbirt, PHQ-9 documented in this encounter Plan of Treatment Upcoming Encounters Date Type Department Care Team (Late st Contact Info) Description 10/26/2024 11:30 AM EDT Office Visit [facility] [address] [place] [address] Kelsey Dhaliwal CNM [address] [place] [address] 12/14/2024 10:30 AM EDT Office Visit [facility] [address] [place] [address] Layne Lozano FNP [address] [place] [address] documented as of this encounter Visit Diagnoses Not on filedocumented in this encounter Additional Health Concerns Assessment Noted Time PHQ-9 Depression Total Score: 0 08/21/19 24 9:43 AM EST documented as of this encounter Care Teams Swaging Machine Operator Relationship Specialty Start Date End Date Layne Lozano FNP [address] [place] [address] PCP - General Family Medicine 05/27/21 documented as of this encounter
--- OUTSIDE RECORDS SUMMARY | 2024-09-14 12:13 | XMS_ITS | Encounter Summary ---
Author Organization [employer] Address [address] [facility] [address] [place] [address] Care Team Providers Care Chair Spring Assembler Name Role Phone Layne Lozano Primary Care Provider [phone] Reason for Visit * Reason Comments Pre-visit Planning SDOH Screening posit nica and Tobacco screening negative Encounter Details Date Type Department Care Team ([facility] Contact Info) Description 08/29/2024 Patient Outreach [facility] [address] [place], [place] [phone] Layne Lozano FNP [address] [place], [place] [phone] Pre-visit Planning (SDOH Screening positive and Tobacco screening negative) Social History Tobacco Use Types Packs/Day Years [...] as of this encounter Progress Notes * Tasha Alvares - 08/29/2024 2:02 PM EST FRANCHESCA Lehman placed successful outbound call to patient for pre-visit planning. Patient name and confirmed. Patient confirms appt date and time, and has transportation arrangements. Biggest concern for appointment at this time is has concerns with her wisdom teeth. Advised patient to contact dental. Patient advised to bring to appointment a photo id and insurance card. Appropriate screenings completed in anticipation of appointment. SDOH positive. Patient looking for assistance with Food insecurities:Sometimes. Referral will be placed. documented in this encounter Plan of Treatment Upcoming Encounters Date Type Department Care Team (Late st Contact Info) Description 10/26/2024 11:30 AM EDT Office Visit [facility] [address] [place] [address] Kelsey Dhaliwal CNM [address] [place] [address] 12/14/2024 10:30 AM EDT Office Visit [facility] [address] [place] [address] Layne Lozano FNP [address] [place] [address] documented as of this encounter Visit Diagnoses Not on filedocumented in this encounter Additional Health Concerns Assessment Noted Time PHQ-9 Depression Total Score: 0 08/21/19 24 9:43 AM EST documented as of this encounter Care Teams Chair Spring Assembler Relationship Specialty Start Date End Date Layne Lozano FNP [address] [place] [address] PCP - General Family Medicine 05/27/21 documented as of this encounter
[2024-09-14 13:11] LABS: Appearance Urine Turbid; Color Urine Yellow; Glucose Urine UA Negative (Negative); Leukocyte Esterase Urine Negative (Negative); Nitrite Urine Negative (Negative); Specific Gravity - Urine >= 1.030 (1.005-1.025); UMIC TRIGGER UACC YES; Urine Blood Trace (Negative); Urine Ketones Negative (Negative); Urine Protein Negative (Neg-Trace)
[2024-09-14 13:17] LABS: Bacteria Urine None Seen (None Seen); Hyaline Casts Urine 0-2 /LPF (0-2); RBC Urine 0-2 /HPF (0-2); Squamous Epithelial Cell Urine 0-2 /HPF (0-2); WBC Urine 0-5 /HPF (0-5)
[2024-09-14 13:25] LABS: MANUAL DIFF FLAG NO
[2024-09-14 13:41] LABS: Basophils Percent Auto 0.4 % (0-2); Eosinophils Absolute Auto 0.3 X10*3/uL (0.0-0.4); Eosinophils Percent Auto 2.4 % (0-4); Hematocrit 38.7 % (37.0-47.0); Hemoglobin 12.7 g/dl (12.0-16.0); Imm Gran Abs Auto 0.03 X10*3/uL (0.00-0.03); Imm Gran Pct Auto 0.3 % (0.0-0.4); Lymphocytes Absolute Auto 2.3 X10*3/uL (1.2-4.9); Lymphocytes Percent Auto 21.8 % (20-40); Mean Corpuscular HGB Conc 32.8 g/dl (31.0-35.0); Mean Corpuscular Hemoglobin 30.4 pg (27.0-33.0); Mean Corpuscular Volume 92.6 fL (80.0-98.0); Mean Platelet Volume 11.2 fL (9.4-12.3); Monocytes Absolute Auto 0.7 X10*3/uL (0.1-1.2); Monocytes Percent Auto 6.6 % (2-11); Neutrophils Absolute Auto 7.3 x10*3/uL (2.0-8.3); Neutrophils Percent Auto 68.5 % (45-73); Platelet Count 295 X10*3/uL (160-400); Red Blood Count 4.18 X10*6/uL (4.20-5.50); Red Cell Distribution Width 13.3 % (11.0-16.0); White Blood Count 10.7 X10*3/uL (4.8-10.8)
[2024-09-14 13:50] LABS: Estimated Average Glucose 103 mg/dL; Hemoglobin A1C 115.8702 umol/L; Hemoglobin A1c % 5.2 % (<6.0); Total Hemoglobin (HGBA1C) 3482.7594 umol/L
[2024-09-14 14:07] LABS: HIV AB/AG Nonreactive (Nonreactive); HIV Num 1 0.06 S/CO (0.00-0.99)
[2024-09-14 14:14] LABS: Alanine Aminotransferase 16 U/L (0-31); Albumin Level 4.1 g/dL (3.5-5.0); Alkaline Phosphatase 111 U/L (39-117); Anion Gap 10 (12-20); Aspartate Amino Transferase 20 U/L (5-31); Bilirubin Total 0.5 mg/dL (0.0-1.0); Blood Urea Nitrogen 11 mg/dL (9-16); Calcium 8.7 mg/dL (8.4-10.2); Carbon Dioxide 26 mmol/L (22-29); Chloride 108 mmol/L (96-108); Cholesterol 162 mg/dL (<200); Estimated Glomerular Filt Rate > 60; Glucose Random 91 mg/dL (60-115); HDL Cholesterol 53 mg/dL (>40); LDL Cholesterol Calculated 96 mg/dL (<100); Potassium 4.2 mmol/L (3.3-5.1); Sodium 140 mmol/L (135-145); TSH reflex Free T4 1.03 uIU/mL (0.32-4.0); Total Protein 7.3 g/dL (6.5-8.0); Triglycerides 66 mg/dL (<150)
[2024-09-14 17:48] LABS: CT PCR NOT DETECTED (Not Detect.); NG PCR NOT DETECTED (Not Detect.)
[2024-09-15 15:48] LABS: RPR Rapid Plasma Reagin NON-REACTIVE (NON-REACTIVE)
[2024-09-16 14:18] LABS: HCV Log PCR <1.18 NOT DETECTED Log IU/mL (NOT DETECTED); HepC Viral Load <15 NOT DETECTED IU/mL (NOT DETECTED)
== END 2024-09-14 11:35 | disposition home or self-care (01) ==
LOC: HO.HHCL 11:34
PROVIDERS: Visit Provider Registered Nurse
DX: Z00.00 Encounter for general adult medical examination without abnormal findings (principal)
CPT/HCPCS: 80053; 80061; 81001; 83036; 84443; 85025; 86592; 87389; 87491; 87522; 87591

== ENCOUNTER 2024-10-07 14:44 | Outpatient (REF) | payer OTHER, SELFPAY ==
--- NOTE | ~2024-10-07 | US_ITS ---
EXAMINATION: US KIDNEY BILATERAL HISTORY: Pain in thoracic spine TECHNIQUE: Real-time grayscale ultrasound imaging of the kidneys was performed and images were reviewed. COMPARISON: There are no prior studies for comparison. FINDINGS: Right kidney: The right kidney measures 10.3 x 4.1 x 5.1 cm. Renal parenchymal echotexture and thickness are normal. There are no masses. No renal calculi are identified. There is mild fullness of the renal pelvis. Left Kidney: The left kidney measures 10.9 x 4.9 x 4.9 cm. Renal parenchymal echotexture and thickness are normal. There are no masses. There is no hydronephrosis or renal calculi. US/US renal BI IMPRESSION: No evidence of nephrolithiasis. Mild fullness of the right renal pelvis. If there is clinical concern for ureteral calculi, unenhanced CT could be performed. Electronically signed by: Stuart Alarcon MD 10/07/2024 03:37 PM EDT
--- NOTE | ~2024-10-07 | US_ITS ---
EXAMINATION: US PELVIS CLINICAL INFORMATION: Left lower quadrant pain. Dysmenorrhea. History of abnormal endometrial ultrasound. COMPARISON: 10/07/2021. TECHNIQUE: Ultrasound of the pelvis is performed using both transabdominal and transvaginal transducers along with Doppler. Transvaginal imaging is performed due to inadequate visualization transabdominally. FINDINGS: Uterus: The uterus is anteverted and measures 9.9 x 5.3 x 5.2 cm. Normal-appearing cervix. The double wall endometrial thickness is 8 mm. It is uniform without abnormality. The uterus is smooth in contour and has normal myometrial echogenicity. No visible fibroid. Adnexa: Both ovaries are visualized. There is normal color flow to the adnexa. There is no ovarian torsion. There is trace simple pelvic fluid. This is likely physiologic. Right ovary measures 4.3 x 2.4 x 2.3 cm. There is a corpus luteal cyst measuring 2.2 cm. Normal sonographic appearance. Left ovary measures 2.8 x 2.5 x 2.5 cm. Normal sonographic appearance. US/US pelvic and transvaginal IMPRESSION: Normal pelvic ultrasound. Electronically signed by: Steven Curtis MD 10/07/2024 03:52 PM EDT
--- OUTSIDE RECORDS SUMMARY | 2024-10-07 16:12 | XMS_ITS | Referral Summary ---
Author Organization [facility] Address [address] [place] [address] Care Team Providers Care Ice Cream Freezer Assistant Name Role Phone Abbie Ny Primary Care [...] Plan of Treatment Not on file Insurance [facility]/FREE CARE Care Teams Ice Cream Freezer Assistant Relationship Specialty Start Date End Date Abbie Ny [address] [place] [address] PCP - General Family Medicine 01/03/22
--- OUTSIDE RECORDS SUMMARY | 2024-10-07 16:12 | XMS_ITS | Clinical Summary ---
Author Organization [facility] Address [address] [place] [address] Care Team Providers Care Event Decorator And Designer Name Role Phone Abbie Ny Primary Care [...] patient's age to complete this topic Insurance [facility] Care Teams Event Decorator And Designer Relationship Specialty Start Date End Date Abbie Ny [address] [place] [address] PCP - General Family Medicine 01/03/22
== END 2024-10-07 14:45 | disposition home or self-care (01) ==
LOC: HO.US 14:44
PROVIDERS: PCP Registered Nurse; Visit Provider Registered Nurse
DX: R10.2 Pelvic and perineal pain (principal); N94.6 Dysmenorrhea, unspecified; R93.5 Abnormal findings on diagnostic imaging of other abdominal regions, including retroperitoneum; M54.6 Pain in thoracic spine; Z87.442 Personal history of urinary calculi
CPT/HCPCS: 76775; 76830; 76856

== ENCOUNTER → 2024-10-07 14:47 | Outpatient (BNV) | payer OTHER, SELFPAY | PROVIDERS: PCP Registered Nurse; Visit Provider Radiology Diagnostic Radiology | DX: R93.5 Abnormal findings on diagnostic imaging of other abdominal regions, including retroperitoneum (principal); N94.6 Dysmenorrhea, unspecified; R10.2 Pelvic and perineal pain | CPT/HCPCS: 76775; 76830; 76856 ==